=== PATIENT | male | born 1995 | race Caucasian/White ===

== ENCOUNTER 2021-10-27 17:38 | Emergency (ER) | payer OTHER ==
[~2021-10-27] VITALS: Ht 170.2 cm; Wt 100.0 kg
[2021-10-27] MEDS ORDERED: PERTUSS(ACELL),DIPH,TET VAC/PF 0.5 ML SYRINGE IM. ONE (21:00)
[2021-10-27] MEDS ORDERED: AMOX TR/POT CLAV 875 MG/125 MG TABLET PO ONE (21:00)
[2021-10-27] MEDS ORDERED: AMOX1TAB16 PO (21:29)
[2021-10-27 21:49] VITALS: BP 137/84
== END 2021-10-27 21:53 | disposition home or self-care (01) ==
LOC: EMS 17:38
DX: S21.132A Puncture wound without foreign body of left front wall of thorax without penetration into thoracic cavity, initial encounter (principal); F12.90 Cannabis use, unspecified, uncomplicated; W54.0XXA Bitten by dog, initial encounter; Y93.01 Activity, walking, marching and hiking; Y92.89 Other specified places as the place of occurrence of the external cause; Y99.8 Other external cause status
CPT/HCPCS: 90471; 90715; 99283